=== PATIENT | female | born 1975 | race Caucasian/White ===

== ENCOUNTER 2016-12-12 13:31 | Emergency (ER) | payer BC ==
[~2016-12-12] VITALS: Ht 170.2 cm; Wt 74.8 kg
--- NOTE | 2016-12-12 13:53 | Emergency Room Report ---
History of Present Illness Time Seen by [id number] Presenting Problem in Triage Pt arrived:Walked Presenting Problem:RIGHT ANKLE INJURY Onset of symptoms date/time:12/12/1605/30/1299 or onset unknown for: Treatment Prior to Arrival: [employer] Provided by: Sepsis Risk Assessment: Temp: 97.9 B/P: 157/88 MAP: 111 Pulse: 80 Resp: 18 Recent fever? N Clinical Suspician of Infection? N Mental Status: 1 - Regular (Normal Baseline) Sepsis Risk:Low Sepsis Risk Have you (or family members/close friends) recently traveled outside the [place]? N If Yes, where/when: Have you had exposure to infectious disease within the past month? N TB? Other? Specify: Patient states she slipped and fell down one step she states she twisted her RIGHT ankle complains mainly of RIGHT lateral malleolus pain and moderate aching irradiation she states she also has some RIGHT lateral foot pain she states she fell on her backside and has some tenderness in her LEFT buttock area. No head trauma no loss of consciousness no prodromal symptoms she states she simply tripped and fell History Medical History General CAD? No Angina: No [place]: No Hypertension? No Hyperlipidemia? No CHF? No DVT? No PE? No COPD? No Asthma? No Anemia? No GERD? No Gastric ulcers? No GI Bleed? No Hernia? No Thyroid Problems? No Hypothyroidism? No CVA? No Seizures? No Diabetes? No Renal Insuffiency? No End Stage Renal Disease? No UTI? No Stones? No BPH? No GB Disease: No Nephritic Syndrome? No Asplenia? No Hepatitis? No Sickle Cell Disease? No Arthritis? No Migraines? No Cataracts? No Glaucoma? No MRSA? No HIV? No TB? No Anxiety? No Depression? No Cancer? No Immunization Hx DT/Tetanus 1-4 Years Ago Surgical Hx Previous Surgery?N DOCTOR OF PODIATRY Hx LMP 1-6 Days Ago Social History Smoking Hx Smoker: Never Smoker Tobacco: No Type Cigarettes Are you/the child exposed to second-hand smoke: No Alcohol Alcohol: Yes Review of Systems All Other Systems Reviewed and Negative Physical Exam Vital Signs Vital Signs Date Time Temp Pulse Resp B/P Pulse O2 O2 Flow FiO2 Ox Delivery Rate 12/12 1338 97.9 80 18 157/88 99 General Appearance: Nontoxic Head: Normocephalic, without obvious abnormality, atraumatic. Eyes: conjunctiva/corneas clear ENT: Mucous membranes moist. Neck: No jugular venous distention. Extremities: no edema Musculoskeletal: N Patient has swelling over the lateral malleolus and tenderness on the lateral malleolus medial malleolus is nontender there is a little bit of tenderness of the RIGHT lateral foot. There is an abrasion overlying the RIGHT lateral foot. 2+ pulses capillary refill intact Sensation intact There is no proximal tib-fib tenderness Little bit of tenderness in the buttock area no Lumbar tenderness Skin: No rashes or lesions to exposed skin. Neurologic: Alert. No gross focal deficits Psychiatric: Normal affect (Esdras Higgins MD) General Appearance normal appearance Respiratory Status No: respiratory distress. Cardiovascular no JVD Neurologic alert Medical Decision Making LABS/Meds/Orders Pt receiving controlled substance in ED? No Results/Orders Orders Procedure Date/time Status STABILIZE JOINT 12/12 1413 Active FOOT-RT-3 VIEWS 12/12 1351 Active COCCYX 2 VIEW 12/12 1341 Active ANKLE-RT-3 VIEWS 12/12 1340 Active Departure Departure Time of Disposition 1409 Disposition DC Home or Self Care(routine) Clinical Impression Primary Impression: Avulsion fracture of right ankle Qualifiers: Encounter type: initial encounter Fracture type: closed Qualified Code: S82.891A - Other fracture of right lower leg, initial encounter for closed fracture Condition STABLE Referrals Sukh Anderson MD Patient Instructions DI for Ankle Fracture Additional Instructions follow up with orthopedics. air splint, crutches, non weight bearing on ankle until cleared by orthopedics Discharge Counseling Counseled pt/family regarding diagnosis, test results, medications/RX, home care, follow up needs Prescriptions Current Visit Scripts IBUPROFEN (Motrin 600MG) 600 MG PO QIDP PRN BREAKTHROUGH MILD PAIN #12 TAB ED Critical Care Critical Care No at 1413
--- OUTSIDE RECORDS SUMMARY | 2016-12-12 13:56 | External Medical Summary Rpt ---
Author Author YAMILE Address Unknown Phone [email or web address] Purpose Continuity of Care Document - through 2016
--- OUTSIDE RECORDS SUMMARY | 2016-12-12 13:56 | External Medical Summary Rpt ---
Author Author [employer] Organization [employer] Address Unknown Phone Unavailable Purpose Continuity of Care Document - through 2016
--- OUTSIDE RECORDS SUMMARY | 2016-12-12 13:56 | External Medical Summary Rpt ---
Author Author YAMILE Address Unknown Phone [email or web address] Purpose Continuity of Care Document - through 2016
--- OUTSIDE RECORDS SUMMARY | 2016-12-12 13:57 | External Medical Summary Rpt ---
Demographics Preferred Language Romanian Marital Status Unknown Anglican Affiliation Unknown Race Unknown Ethnic Group Unknown Author Author , [place] Address Unknown Phone Immunization Unable to retrieve immunization data due to connection failure with Immunization Registry. Please try again later.
--- OUTSIDE RECORDS SUMMARY | 2016-12-12 13:57 | External Medical Summary Rpt ---
Demographics Preferred Language Serbian Marital Status Unknown Sabianist Affiliation Unknown Race Unknown Ethnic Group Unknown Author Author , [place] Address Unknown Phone Immunization Unable to retrieve immunization data due to connection failure with Immunization Registry. Please try again later.
[2016-12-12] MEDS ORDERED: MOTRIN 600MG.600 MG PO (14:11)
--- NOTE | 2016-12-12 14:18 | RADIOLOGY REPORT PS360 ---
ANKLE-RT-3 VIEWS COMPARISON: None HISTORY: Right ankle pain and swelling after injury TECHNIQUE: AP lateral and oblique views FINDINGS: There is prominent soft tissue swelling laterally. There is a tiny sliver of old sitting just adjacent to the tip of the lateral malleolus likely representing a small flake fracture. The medial malleolus appears intact iliac mortise is normal. IMPRESSION: Marked soft tissue injury with probable tiny flake fracture tip of lateral malleolus
--- NOTE | 2016-12-12 14:32 | RADIOLOGY REPORT PS360 ---
FOOT-RT-3 VIEWS COMPARISON: None HISTORY: Right foot pain after injury TECHNIQUE: AP lateral and oblique views FINDINGS: The tarsal bones metatarsals and phalanges appear intact with no evidence of fracture. The plantar arch is normal and the soft tissues are normal. IMPRESSION: Negative right foot
--- NOTE | 2016-12-12 14:33 | RADIOLOGY REPORT PS360 ---
COCCYX 2 VIEW COMPARISON: None HISTORY: Tailbone pain after a fall TECHNIQUE: AP and lateral views FINDINGS: The SI joints appear normal. The sacrum and coccyx appear intact with no definite fracture or subluxation seen. IMPRESSION: Grossly negative sacrum and coccyx
[2016-12-12 14:40] VITALS: BP 133/76
== END 2016-12-12 14:41 | disposition home or self-care (01) ==
LOC: ER 13:31
PROC: 2W3QX1Z Immobilization of Right Lower Leg using Splint (ICD-10-PCS; principal; 2016-12-12)
DX: S82.891A Other fracture of right lower leg, initial encounter for closed fracture (principal); W10.8XXA Fall (on) (from) other stairs and steps, initial encounter